=== PATIENT | male | born 1955 | race Caucasian/White ===

== ENCOUNTER 2016-06-29 16:42 | Emergency (ER) | payer MEDICARE | END 2016-06-29 19:45 | disposition home or self-care (01) | LOC: D.ER 16:42 | DX: G62.9 Polyneuropathy, unspecified (principal); E11.9 Type 2 diabetes mellitus without complications; I10 Essential (primary) hypertension ==

== ENCOUNTER 2016-10-17 11:24 | Emergency (ER) | payer MEDICARE | END 2016-10-17 12:06 | disposition home or self-care (01) | LOC: D.ER 11:24 | DX: M54.5 Low back pain (principal); E78.5 Hyperlipidemia, unspecified; E11.9 Type 2 diabetes mellitus without complications; I10 Essential (primary) hypertension ==

== ENCOUNTER 2016-10-20 13:13 | Emergency (ER) | payer MEDICARE | END 2016-10-20 19:24 | disposition home or self-care (01) | LOC: D.ER 13:13 | DX: M54.16 Radiculopathy, lumbar region (principal); I10 Essential (primary) hypertension; E11.9 Type 2 diabetes mellitus without complications ==

== ENCOUNTER → 2017-07-30 13:05 | Outpatient (CLI) | payer MEDICARE ==
[2017-07-30 14:08] LABS: ALBUMIN 3.7 g/dL (3.4-5.0); ANION GAP 15.2 mmol/L (8-16); BILIRUBIN - TOTAL 0.82 mg/dL (0.2-1.3); CALCIUM 9.4 mg/dL (8.5-10.1); CREATININE - SERUM 1.3 mg/dL (0.6-1.3); POTASSIUM - SERUM 4.2 mmol/L (3.5-5.1)
== END | disposition home or self-care (01) ==
LOC: D.LAB 07-10 08:15 → D.MRI 07-10 08:30 → D.LAB 13:05
PROVIDERS: Legal Medicine
DX: M51.35 Other intervertebral disc degeneration, thoracolumbar region (principal); M54.5 Low back pain; E11.9 Type 2 diabetes mellitus without complications; E78.2 Mixed hyperlipidemia; M77.40 Metatarsalgia, unspecified foot

== ENCOUNTER → 2018-01-06 08:19 | Outpatient (CLI) | payer MEDICARE ==
[~2018-01-06 08:19] MED LIST: ACCURETIC 20-251 TAB PO; CARDURA4 MG PO; CELEXA20 MG PO; CYMBALTA60 MG PO; DURAGESIC1 PATCH .2 TRANSDERM; FLOMAX0.4 MG PO; GLUCOPHAGE1000 MG PO; HYDROCODONE-APA1 TAB PO; METOPROLOL TART50 MG PO; MOBIC7.5 MG PO; NEURONTIN 400400 MG PO; PROSCAR5 MG PO; ZANAFLEX4 MG PO
[2018-02-04 10:55] VITALS: BMI 30.1
== END | disposition home or self-care (01) ==
LOC: D.MRI 08:19
DX: I67.1 Cerebral aneurysm, nonruptured (principal)

== ENCOUNTER 2018-01-19 05:14 | Day surgery (SDC) | payer MEDICARE ==
[~2018-01-19] VITALS: Ht 172.7 cm; Wt 85.3 kg
--- NOTE | ~2018-01-19 | OP ---
PATIENT NAME: FABRICIO MAO MEDICAL RECORD: [id number] :55 LOCATION:[facility] ADMISSION DATE: SURGEON: GAIL BOYLE MD DATE OF OPERATION: 01/19/2018 DATE OF SERVICE: 01/19/2018 PREOPERATIVE DIAGNOSES: Lumbar spinal stenosis and foraminal stenosis L3-L4, left. PROCEDURE: Lumbar laminotomy, medial facetectomy and foraminotomy L3-L4, left, with METRx retractor. SURGEON: Gail Boyle MD PRIMARY CARE DOCTOR: Dr. Martinez. DESCRIPTION AND TECHNIQUE: After induction of general endotracheal anesthesia, the patient was rolled prone on a Jamaal frame. Lumbar spine was prepped and draped in usual sterile fashion. Fluoroscopic x-ray and spinal needle localized the L3-L4 interspace on the left side. A stab incision was created with #11 blade and series of dilators were used to advance a METRx retractor to the L3-L4 interspace on the left. This was confirmed with fluoroscopic x-ray. A microscope and Midas Raudel drill were used to perform laminotomy, medial facetectomy and foraminotomy L3-L4 on the left. Hypertrophied ligamentum flavum was removed with Cloward rongeurs. Foraminotomy was carried out with Cloward rongeurs on the left around the pedicle and also the transiting L4 nerve root. Both nerves were decompressed well. The disc space was inspected and found to cause no significant nerve root compression. Therefore, there was no discectomy performed. The retractor was removed. The fascia was closed with 2-0 Vicryl suture. Subdermal layer was closed with 3-0 Vicryl suture. The skin was closed with ge. A sterile dressing was applied to the wound. The patient was awakened in good condition and taken to recovery. All counts were reported as correct. Estimated blood loss was minimal. TRANSINT:[id number] Voice Confirmation ID: [id number] DOCUMENT ID: [id number] GAIL BOYLE MD at 1841 CC: [id number] DICTATION DATE: 02/05/18 1021 COMMUNITY RELATIONS MANAGER: 02/05/18 1050 [facility] 01/19/18 [place] [address]
[~2018-01-19 05:14] MED LIST changes: -FLOMAX0.4 MG PO; -HYDROCODONE-APA1 TAB PO; -PROSCAR5 MG PO
[2018-01-19 05:35] LABS: HEMATOCRIT 33.5 % (42.0-54.0); HEMOGLOBIN 11.2 g/dL (13.5-17.5); MCH 28.4 pg (26.0-34.0); MCHC 33.4 g/dL (31.0-37.0); MCV 84.8 fL (80.0-100.0); MEAN PLATELET VOLUME 11.2 fL (7.4-10.4); RBC 3.95 10x6/uL (4.20-6.10); WBC 6.5 10x3/uL (4.8-10.8)
[2018-01-19 06:08] LABS: ANION GAP 12.7 mmol/L (8-16); CALCIUM 8.5 mg/dL (8.5-10.1); CARBON DIOXIDE 28.5 mmol/L (21.0-32.0); CREATININE - SERUM 1.6 mg/dL (0.6-1.3); POTASSIUM - SERUM 4.2 mmol/L (3.5-5.1)
[2018-01-19 06:27] VITALS: BP 124/82; Ht 172.7 cm; Wt 85.3 kg
[2018-01-19] MEDS ORDERED: HYDROCODONE-APA1 TAB PO (12:07)
== END 2018-01-19 12:23 | disposition home or self-care (01) ==
LOC: D.OPS 05:14
PROVIDERS: Anesthesiology
DX: M48.061 Spinal stenosis, lumbar region without neurogenic claudication (principal); Z01.812 Encounter for preprocedural laboratory examination

== ENCOUNTER 2018-02-03 16:41 | Inpatient (IN) | payer MEDICARE ==
[~2018-02-03] VITALS: Ht 172.7 cm; Wt 81.3 kg
--- NOTE | ~2018-02-03 | OP ---
PATIENT NAME: FABRICIO MAO MEDICAL RECORD: [id number] :55 LOCATION:D. D.2111 ADMISSION DATE:02/03/18 SURGEON: AJ RAMOS MD DATE OF OPERATION: 02/04/2018 SURGEON: Aj Ramso MD ANESTHESIA: MAC by Gordy Cruz CRNA DIAGNOSES: Urinary retention with renal failure due to obstructive BPH. PROCEDURE: Cystoscopy and insertion of a Colón catheter over a guidewire. FINDINGS: No urethral stricture. Obstructive BPH with a very large median lobe. Heavily trabeculated very large capacity bladder with over 1 liter of urine in it. BLOOD LOSS: None. CLINICAL HISTORY: This is a 63-year-old male, who about 2 weeks ago had a lumbar laminectomy. This relieved his back pain, but he found it very difficult to void. Apparently, he has been having difficulty voiding for some time and he has nocturia x5. He also has daytime urinary frequency. Eventually, he went to his physician complaining of abdominal pain as well as right flank pain. A CT scan shows a massively distended bladder with bilateral hydronephrosis. His blood work shows renal failure with a creatinine of 13.3 and BUN of 149. His sodium is somewhat low at 132 and his potassium is normal at 4.6. The nurses on the floor attempted to insert a Colón catheter, but they were unsuccessful. He comes now to have Colón catheter insertion through a scope. Because of his renal failure, I did not give him any antibiotics. DESCRIPTION OF PROCEDURE: The patient was given IV sedation. He was placed in the dorsal lithotomy position and prepped and draped. We then used a 21-Swedish cystoscope with 30-degree lens for visualization. He does not have any urethral strictures. The prostatic urethra was obstructed. The lateral lobes are not too bad, but he has a very tall median lobe. Going into the bladder, the bladder was massively distended. Single ureteral orifices are seen. I did not see any bladder tumors. We inserted a Sensor wire into the bladder. The scope was then removed, leaving the wire in place. A 16-Swedish circle tip Colón catheter was then inserted into the bladder. The balloon was inflated with 10 cc of sterile water. I am sure that there is at least a liter, if not more in the bladder. The patient will be returned back to the floor and he will be watched for development of postobstructive diuresis. TRANSINT:[id number] Voice Confirmation ID: [id number] DOCUMENT ID: [id number] AJ RAMOS MD at 0842 CC: [id number] DICTATION DATE: 02/04/18 1706 MIXING MACHINE ATTENDANT: 02/04/18 1751 ADM IN [id number] [place] [address]
[~2018-02-03 16:41] MED LIST changes: +HYDROCODONE-APA1 TAB PO
[2018-02-03 17:13] LABS: BASOPHILS 0.1 % (0-2); EOSINOPHILS 0.2 % (0-7); HEMATOCRIT 25.8 % (42.0-54.0); IMMATURE GRANULOCYTES 0.4 % (0-5); LYMPHOCYTES 7.4 % (15-50); MCH 27.8 pg (26.0-34.0); MCHC 34.9 g/dL (31.0-37.0); MCV 79.6 fL (80.0-100.0); MEAN PLATELET VOLUME 8.5 fL (7.4-10.4); NEUTROPHILS 82.9 % (40-80); PLATELET COUNT 171 10x3/uL (130-400); RBC 3.24 10x6/uL (4.20-6.10); RDW 13.8 % (11.5-14.5); WBC 13.8 10x3/uL (4.8-10.8)
[2018-02-03 18:11] LABS: ALBUMIN 2.6 g/dL (3.4-5.0); ANION GAP 25.2 mmol/L (8-16); BILIRUBIN - TOTAL 0.66 mg/dL (0.2-1.3); CALCIUM 8.4 mg/dL (8.5-10.1); CREATININE - SERUM 14.6 mg/dL (0.6-1.3); POTASSIUM - SERUM 5.2 mmol/L (3.5-5.1); PROTEIN - SERUM 6.9 g/dL (6.4-8.2)
[2018-02-03 19:26] LABS: APPEARANCE CLEAR (CLEAR); BILIRUBIN NEGATIVE (NEGATIVE); COLOR YELLOW (YELLOW); GLUCOSE NEGATIVE (NEGATIVE); KETONE NEGATIVE (NEGATIVE); NITRITE NEGATIVE (NEGATIVE); PROTEIN TRACE mg/dL (NEGATIVE); SPECIFIC GRAVITY 1.015 (1.005-1.020); UROBILINOGEN NORMAL (NORMAL)
[2018-02-03 22:49] VITALS: BP 167/86
[2018-02-04 01:02] VITALS: BP 145/68; BMI 30.1
[2018-02-04 04:00] VITALS: BP 154/80
[2018-02-04 06:47] LABS: BASOPHILS 0.1 % (0-2); EOSINOPHILS 0.3 % (0-7); HEMATOCRIT 26.5 % (42.0-54.0); HEMOGLOBIN 9.4 g/dL (13.5-17.5); IMMATURE GRANULOCYTES 0.5 % (0-5); LYMPHOCYTES 5.8 % (15-50); MCH 28.5 pg (26.0-34.0); MCHC 35.5 g/dL (31.0-37.0); MCV 80.3 fL (80.0-100.0); MEAN PLATELET VOLUME 9.2 fL (7.4-10.4); MONOCYTES 10.9 % (2-11); NEUTROPHILS 82.4 % (40-80); RDW 13.9 % (11.5-14.5); WBC 15.3 10x3/uL (4.8-10.8)
[2018-02-04 07:00] LABS: PLATELET COUNT 207 10x3/uL (130-400)
[2018-02-04 07:20] LABS: ALBUMIN 2.6 g/dL (3.4-5.0); ANION GAP 22.8 mmol/L (8-16); BILIRUBIN - TOTAL 0.56 mg/dL (0.2-1.3); CALCIUM 8.5 mg/dL (8.5-10.1); CARBON DIOXIDE 15.8 mmol/L (21.0-32.0); CREATININE - SERUM 13.3 mg/dL (0.6-1.3); MAGNESIUM - SERUM 1.3 mg/dL (1.8-2.4); PHOSPHOROUS 6.9 mg/dL (2.5-4.9); POTASSIUM - SERUM 4.6 mmol/L (3.5-5.1)
[2018-02-04 08:54] LABS: % SATURATION 18 % (15-55); IRON 36 ug/dl (35-150); TOTAL IRON BIND CAPACITY 194 ug/dl (260-445); UNSAT IRON BIND CAPACITY 158 ug/dl (150-375)
[2018-02-04 10:55] VITALS: Ht 172.7 cm; Wt 81.3 kg
[2018-02-04 12:30] VITALS: BP 137/86
[2018-02-04 21:38] VITALS: BP 136/76
[2018-02-05 06:16] LABS: BASOPHILS 0.2 % (0-2); EOSINOPHILS 1.6 % (0-7); HEMATOCRIT 23.9 % (42.0-54.0); HEMOGLOBIN 8.4 g/dL (13.5-17.5); IMMATURE GRANULOCYTES 0.6 % (0-5); LYMPHOCYTES 14.1 % (15-50); MCH 27.8 pg (26.0-34.0); MCHC 35.1 g/dL (31.0-37.0); MCV 79.1 fL (80.0-100.0); MEAN PLATELET VOLUME 9.1 fL (7.4-10.4); MONOCYTES 5.5 % (2-11); PLATELET COUNT 175 10x3/uL (130-400); RBC 3.02 10x6/uL (4.20-6.10); RDW 13.8 % (11.5-14.5); WBC 11.5 10x3/uL (4.8-10.8)
[2018-02-05 06:28] VITALS: BP 122/74
[2018-02-05 06:50] LABS: ALBUMIN 2.4 g/dL (3.4-5.0); BILIRUBIN - TOTAL 0.54 mg/dL (0.2-1.3); CALCIUM 8.5 mg/dL (8.5-10.1); PROTEIN - SERUM 6.5 g/dL (6.4-8.2)
[2018-02-05 06:51] LABS: CARBON DIOXIDE 21.7 mmol/L (21.0-32.0); POTASSIUM - SERUM 3.7 mmol/L (3.5-5.1)
[2018-02-05 08:31] VITALS: BP 147/86
[2018-02-05 09:21] LABS: FOLATE (FOLIC ACID) - SERUM 5.5 ng/mL (>3.0)
[2018-02-05 12:43] LABS: APPEARANCE TURBID (CLEAR); COLOR PINK (YELLOW)
[2018-02-05 12:44] LABS: BILIRUBIN NEGATIVE (NEGATIVE); GLUCOSE 1000 mg/dL (NEGATIVE); KETONE NEGATIVE (NEGATIVE); NITRITE NEGATIVE (NEGATIVE); PROTEIN 2+ mg/dL (NEGATIVE); SPECIFIC GRAVITY 1.015 (1.005-1.020); UROBILINOGEN NORMAL (NORMAL); WHITE CELLS - URINE 0-5 /hpf (0-5)
[2018-02-05 12:45] LABS: EPITHELIAL CELLS OCC /hpf (0-5); MUCUS <1+ /lpf (NONE SEEN); RED CELLS - URINE >50 /hpf (0-5)
[2018-02-05 12:46] LABS: AMORPHOUS SEDIMENT <1+ /lpf (NONE SEEN)
[2018-02-05 14:12] VITALS: BP 108/68
[2018-02-05 16:20] VITALS: BP 102/59
[2018-02-05 21:10] VITALS: BP 116/66
[2018-02-06 01:02] VITALS: BP 124/70
[2018-02-06 05:26] LABS: BASOPHILS 0.5 % (0-2); EOSINOPHILS 6.1 % (0-7); HEMATOCRIT 23.1 % (42.0-54.0); IMMATURE GRANULOCYTES 0.9 % (0-5); LYMPHOCYTES 19.8 % (15-50); MCH 28.3 pg (26.0-34.0); MCHC 34.6 g/dL (31.0-37.0); MCV 81.6 fL (80.0-100.0); MEAN PLATELET VOLUME 9.5 fL (7.4-10.4); NEUTROPHILS 60.7 % (40-80); PLATELET COUNT 186 10x3/uL (130-400); RBC 2.83 10x6/uL (4.20-6.10); RDW 14.1 % (11.5-14.5); WBC 7.5 10x3/uL (4.8-10.8)
[2018-02-06 05:47] LABS: ALBUMIN 2.1 g/dL (3.4-5.0); ALKALINE PHOSPHATASE 50 U/L (46-116); ALT (SGPT) 13 U/L (10-68); BILIRUBIN - TOTAL 0.39 mg/dL (0.2-1.3); CARBON DIOXIDE 24.8 mmol/L (21.0-32.0); CHLORIDE - SERUM 110 mmol/L (98-107); GLUCOSE 115 mg/dL (74-106); POTASSIUM - SERUM 3.7 mmol/L (3.5-5.1); PROTEIN - SERUM 5.9 g/dL (6.4-8.2); SODIUM 142 mmol/L (136-145)
[2018-02-06 05:50] LABS: CALC OSMOLALITY 284 mosm/kg (275-300); CREATININE - SERUM 0.8 mg/dL (0.6-1.3); UREA NITROGEN 16 mg/dL (7-18); eGFR NON AFRICAN AMERICAN > 90 mL/min (90-120)
[2018-02-06 05:51] VITALS: BP 116/54
[2018-02-06 08:30] VITALS: BP 128/76
[2018-02-06 12:58] VITALS: BP 94/64
[2018-02-06] MEDS ORDERED: FLOMAX0.4 MG PO (17:54)
[2018-02-06] MEDS ORDERED: PROSCAR5 MG PO (17:54)
== END 2018-02-06 18:37 | disposition home or self-care (01) | DRG 683 ==
LOC: D.ER 16:41 → D.M2 22:50
PROVIDERS: Emergency Medicine; Family Medicine; Legal Medicine; Student in an Organized Health Care Education/Training Program; Urology
PROC: 0T9B80Z Drainage of Bladder with Drainage Device, Via Natural or Artificial Opening Endoscopic (ICD-10-PCS; principal; 2018-02-04 14:00)
DX: N17.9 Acute kidney failure, unspecified (principal); N13.8 Other obstructive and reflux uropathy; N13.1 Hydronephrosis with ureteral stricture, not elsewhere classified; N40.1 Benign prostatic hyperplasia with lower urinary tract symptoms; R33.8 Other retention of urine; E11.9 Type 2 diabetes mellitus without complications; I10 Essential (primary) hypertension; K21.9 Gastro-esophageal reflux disease without esophagitis; F32.9 Major depressive disorder, single episode, unspecified; F41.9 Anxiety disorder, unspecified

== ENCOUNTER → 2018-03-16 09:38 | Outpatient (CLI) | payer MEDICARE ==
[2018-02-04 10:55] VITALS: BMI 30.1
[~2018-03-16 09:38] MED LIST changes: +FLOMAX0.4 MG PO; +PROSCAR5 MG PO
== END | disposition home or self-care (01) ==
LOC: D.MRI 09:38
DX: M54.16 Radiculopathy, lumbar region (principal)

== ENCOUNTER 2018-03-30 08:20 | Day surgery (SDC) | payer MEDICARE, MEDICAID ==
[2018-03-29 09:32] LABS: HEMATOCRIT 31.1 % (42.0-54.0); HEMOGLOBIN 9.8 g/dL (13.5-17.5); MCH 27.5 pg (26.0-34.0); MCHC 31.5 g/dL (31.0-37.0); MCV 87.4 fL (80.0-100.0); MEAN PLATELET VOLUME 10.4 fL (7.4-10.4); RBC 3.56 10x6/uL (4.20-6.10); RDW 13.4 % (11.5-14.5); WBC 6.1 10x3/uL (4.8-10.8)
[~2018-03-30] VITALS: Ht 172.7 cm; Wt 79.5 kg
[2018-03-30] VITALS (10 sets, daily range): BP systolic 114–163; BP diastolic 60–923; Ht 172.7 cm; Wt 79.5 kg
--- NOTE | ~2018-03-30 | OP ---
PATIENT NAME: FABRICIO MAO MEDICAL RECORD: [id number] :55 LOCATION:[facility] ADMISSION DATE: SURGEON: MARK RAMOS MD DATE OF OPERATION: 03/30/2018 SURGEON: Mark Ramos MD ANESTHESIA: General anesthesia by Alexa Vila CRNA. DIAGNOSIS: Urinary retention due to obstructive BPH. PROCEDURE: Cystoscopy, transurethral resection of the prostate using a button electrode and bipolar resection loop. FINDINGS: Trilobar hyperplasia of the prostate. Very vascular prostate. Single ureteral orifices bilaterally. Trabeculated bladder without any tumors. BLOOD LOSS: Difficult to estimate. He has a large number of arterial bleeders. CBC drawn intraoperatively. CLINICAL HISTORY: This is a 63-year-old male, who went into urinary retention after he had some back surgery. He has been on doxazosin for many years to treat his BPH. A Colón catheter was placed as he had developed renal failure from the urinary retention. His renal failure resolved after placement of the Colón catheter. He was also started on tamsulosin and finasteride. He had a voiding trial in the office and he was unable to void. He does not wish to continue waiting for the finasteride to take effect and he wishes to proceed with a TURP. He is not allergic to any medications. He was given Ancef IV secretary board of commissioners to the OR. DESCRIPTION OF PROCEDURE: The patient was given induction of general anesthesia. He was placed in dorsal lithotomy position and prepped and draped. The resectoscope was inserted using an obturator. We then placed the lens for cystoscopy. He has moderate sized median lobe, but very large lateral lobes, which are obstructive. The verumontanum was seen clearly. Going in the bladder, no bladder tumors were seen. There are single ureteral orifices on each side. The button electrode was used and an initial resection started from the bladder neck to the area just proximal to the verumontanum. The prostate looks extremely vascular and even with the plasma vaporization from the button electrode, he continued to have quite significant bleeding. This was especially prevalent at the bladder neck. At any time we saw arterial bleeding, it was coagulated. After a while, we had resected much of the prostate with the button electrode. However, there was still large masses of the lateral lobes present. We therefore switched over to the bipolar resection loop. We then removed quite significantly greater quantities of tissue. However, we encountered equally significant arterial bleeding points. These were coagulated where I could see them. Bleeding was also evident in the anterior fibromuscular region and this also had to be resected. On the lateral lobes, I entered into the venous sinuses on both sides. In order to get at bleeding tissue, I had to resect away the verumontanum. This allowed me to see the arterial bleeding source on the posterior floor of the prostate. At the end of the procedure, the patient had well resected prostatic urethra. There was still quite a significant amount of venous bleeding. I switched back to the button electrode and coagulated the entire surface of the prostate. We elliked out the prostatic resection chips. We looked further and saw no further prostatic resection chips in the bladder. OPERATIVE REPORT [id number] FABRICIO MAO The scope was removed and a 24-Estonian 3-way Colón catheter was inserted into the bladder. The balloon was inflated with 30 cc of saline. We then started continuous bladder irrigation with normal saline. Intraoperatively, his blood pressure did drop to 170 systolic. We obtained a CBC level. His preoperative hemoglobin was 9.8 and the intraoperative hemoglobin was 9.9. However, I think he is hypovolemic regardless. We proceeded to transfuse him with 2 units of packed red blood cells. At the end of procedure, he has continuous bladder irrigation going. This is fairly clear and drainage. I will keep him in hospital for continuous bladder irrigation. He will probably have to go home with a Colón catheter until the venous sinuses have sealed off. TRANSINT:[id number] Voice Confirmation ID: [id number] DOCUMENT ID: [id number] MARK RAMOS MD at 1500 CC: [id number] DICTATION DATE: 03/30/18 1400 WARDROBE MISTRESS: 03/30/18 1452 [facility] [address] [id number]
[~2018-03-30 08:20] MED LIST changes: +LIPITOR40 MG PO; +NORVASC5 MG PO; +OXYCONTIN15 MG; +PEPCID AC20 MG PO; +PROSCAR5 MG
[2018-03-30 12:53] LABS: BASOPHILS 0.5 % (0-2); EOSINOPHILS 2.8 % (0-7); HEMATOCRIT 30.1 % (42.0-54.0); HEMOGLOBIN 9.9 g/dL (13.5-17.5); IMMATURE GRANULOCYTES 0.2 % (0-5); MCHC 32.9 g/dL (31.0-37.0); MEAN PLATELET VOLUME 10.8 fL (7.4-10.4); MONOCYTES 6.8 % (2-11); NEUTROPHILS 67.7 % (40-80); PLATELET COUNT 154 10x3/uL (130-400); RBC 3.53 10x6/uL (4.20-6.10); RDW 13.3 % (11.5-14.5); WBC 6.1 10x3/uL (4.8-10.8)
[2018-03-30 13:02] LABS: MCV 85.3 fL (80.0-100.0)
[2018-03-30 18:13] LABS: CALC OSMOLALITY 286 mosm/kg (275-300); CALCIUM 7.4 mg/dL (8.5-10.1); CARBON DIOXIDE 22.7 mmol/L (21.0-32.0); CHLORIDE - SERUM 110 mmol/L (98-107); CREATININE - SERUM 0.9 mg/dL (0.6-1.3); GLUCOSE 126 mg/dL (74-106); POTASSIUM - SERUM 4.8 mmol/L (3.5-5.1); SODIUM 142 mmol/L (136-145); UREA NITROGEN 18 mg/dL (7-18); eGFR NON AFRICAN AMERICAN > 90 mL/min (90-120)
[2018-03-31 03:39] VITALS: BP 105/46
[2018-03-31 08:51] VITALS: BP 143/66
[2018-03-31 09:50] LABS: BASOPHILS 0.2 % (0-2); EOSINOPHILS 3.6 % (0-7); HEMATOCRIT 31.6 % (42.0-54.0); HEMOGLOBIN 10.4 g/dL (13.5-17.5); IMMATURE GRANULOCYTES 0.1 % (0-5); LYMPHOCYTES 13.8 % (15-50); MCH 28.6 pg (26.0-34.0); MCHC 32.9 g/dL (31.0-37.0); MCV 86.8 fL (80.0-100.0); MEAN PLATELET VOLUME 10.4 fL (7.4-10.4); NEUTROPHILS 76.3 % (40-80); PLATELET COUNT 132 10x3/uL (130-400); RBC 3.64 10x6/uL (4.20-6.10)
[2018-03-31 09:53] LABS: WBC 8.1 10x3/uL (4.8-10.8)
[2018-03-31] MEDS ORDERED: NORCO 7.5/325 T1 TA1 PO (11:15)
[2018-03-31] MEDS ORDERED: OXYBUTYNIN CHLOR5 MG PO (11:16)
[2018-03-31 12:36] VITALS: BP 128/66
== END 2018-03-31 16:30 | disposition home or self-care (01) ==
LOC: D.OPS 08:20 → D.MS 16:05 → D.OPS 16:06 → D.MS 16:07 → D.OPS 03-31 16:30 → D.MS 03-31 16:30
PROVIDERS: Anesthesiology; Urology
DX: N40.1 Benign prostatic hyperplasia with lower urinary tract symptoms (principal); N13.8 Other obstructive and reflux uropathy; I10 Essential (primary) hypertension; E11.9 Type 2 diabetes mellitus without complications

== ENCOUNTER 2018-07-07 14:14 | Emergency (ER) | payer MEDICARE, MEDICAID ==
[~2018-07-07] VITALS: Ht 172.7 cm; Wt 88.6 kg
[~2018-07-07 14:14] MED LIST changes: +NORCO 7.5/325 T1 TA1 PO; +OXYBUTYNIN CHLOR5 MG PO
[2018-07-07 14:17] VITALS: BP 131/85; Ht 172.7 cm; Wt 88.6 kg
[2018-07-07] MEDS ORDERED: OXYCODONE HCL E20 MG PO (14:21)
[2018-07-07] MEDS ORDERED: VOLTAREN75 MG PO (15:48)
[2018-07-07] MEDS ORDERED: BACLOFEN20 M1 PO (15:48)
[2018-07-07] MEDS ORDERED: TALWIN NX1 TAB PO (15:48)
== END 2018-07-07 16:33 | disposition home or self-care (01) ==
LOC: D.ER 14:14
DX: M54.5 Low back pain (principal); E11.9 Type 2 diabetes mellitus without complications; I10 Essential (primary) hypertension

== ENCOUNTER → 2018-07-09 21:03 | Outpatient (CLI) | payer MEDICARE, MEDICAID ==
[2018-07-07 14:17] VITALS: BMI 29.7
[~2018-07-09 21:03] MED LIST changes: +BACLOFEN20 M1 PO; +OXYCODONE HCL E20 MG PO; +TALWIN NX1 TAB PO; +VOLTAREN75 MG PO
[2018-07-09 21:21] LABS: BASOPHILS 0.3 % (0-2); EOSINOPHILS 0.2 % (0-7); HEMOGLOBIN 13.6 g/dL (13.5-17.5); IMMATURE GRANULOCYTES 0.1 % (0-5); LYMPHOCYTES 14.6 % (15-50); MCH 27.7 pg (26.0-34.0); MCV 81.5 fL (80.0-100.0); MEAN PLATELET VOLUME 12.2 fL (7.4-10.4); MONOCYTES 8.2 % (2-11); NEUTROPHILS 76.6 % (40-80); RBC 4.91 10x6/uL (4.20-6.10); RDW 13.9 % (11.5-14.5); WBC 11.3 10x3/uL (4.8-10.8)
[2018-07-09 21:38] LABS: ALBUMIN 3.7 g/dL (3.4-5.0); BILIRUBIN - TOTAL 1.02 mg/dL (0.2-1.3); CALCIUM 10.1 mg/dL (8.5-10.1); CARBON DIOXIDE 22.2 mmol/L (21.0-32.0); CREATININE - SERUM 1.5 mg/dL (0.6-1.3); POTASSIUM - SERUM 4.2 mmol/L (3.5-5.1)
[2018-07-09 21:39] LABS: PLATELET COUNT 280 10x3/uL (130-400)
[2018-07-09 21:51] LABS: HELICOBACTER PYLORI IGG NEGATIVE (NEGATIVE)
== END | disposition home or self-care (01) ==
LOC: D.LABREF 21:03
PROVIDERS: Legal Medicine
DX: R10.9 Unspecified abdominal pain (principal)

== ENCOUNTER 2018-09-25 18:35 | Emergency (ER) | payer MEDICARE, MEDICAID ==
[2018-09-25 18:39] VITALS: BMI 26.6
[2018-09-25 19:37] LABS: BASOPHILS 0.3 % (0-2); EOSINOPHILS 1.2 % (0-7); HEMATOCRIT 37.5 % (42.0-54.0); HEMOGLOBIN 12.7 g/dL (13.5-17.5); IMMATURE GRANULOCYTES 0.3 % (0-5); LYMPHOCYTES 11.8 % (15-50); MCH 27.5 pg (26.0-34.0); MCHC 33.9 g/dL (31.0-37.0); MCV 81.3 fL (80.0-100.0); MEAN PLATELET VOLUME 10.3 fL (7.4-10.4); MONOCYTES 7.9 % (2-11); NEUTROPHILS 78.5 % (40-80); PLATELET COUNT 242 10x3/uL (130-400); RBC 4.61 10x6/uL (4.20-6.10); RDW 13.1 % (11.5-14.5); WBC 15.1 10x3/uL (4.8-10.8)
[2018-09-25 19:54] LABS: APPEARANCE CLEAR (CLEAR); BILIRUBIN NEGATIVE (NEGATIVE); COLOR YELLOW (YELLOW); GLUCOSE NEGATIVE (NEGATIVE); KETONE NEGATIVE (NEGATIVE); NITRITE NEGATIVE (NEGATIVE); PROTEIN NEGATIVE (NEGATIVE); SPECIFIC GRAVITY 1.005 (1.005-1.020); UROBILINOGEN NORMAL (NORMAL)
[2018-09-25 19:59] LABS: ALBUMIN 4.3 g/dL (3.4-5.0); ALKALINE PHOSPHATASE 90 U/L (46-116); ALT (SGPT) 17 U/L (10-68); BILIRUBIN - TOTAL 0.75 mg/dL (0.2-1.3); CALC OSMOLALITY 274 mosm/kg (275-300); CALCIUM 9.6 mg/dL (8.5-10.1); CARBON DIOXIDE 22.8 mmol/L (21.0-32.0); CHLORIDE - SERUM 96 mmol/L (98-107); CREATININE - SERUM 1.5 mg/dL (0.6-1.3); GLUCOSE 157 mg/dL (74-106); POTASSIUM - SERUM 4.9 mmol/L (3.5-5.1); PROTEIN - SERUM 8.5 g/dL (6.4-8.2); SODIUM 134 mmol/L (136-145); UREA NITROGEN 25 mg/dL (7-18); eGFR NON AFRICAN AMERICAN 50 mL/min (90-120)
[2018-09-25] MEDS ORDERED: FLOMAX0.4 MG PO (20:06)
[2018-09-25] MEDS ORDERED: CIPRO500 MG PO (20:06)
[2018-09-25 20:10] LABS: LIPASE 151 U/L (73-393); PRO BNP 120 pg/mL (0-125)
[2018-09-25 20:11] LABS: TROPONIN-I < 0.017 ng/mL (0.000-0.060)
[2018-09-25 22:17] VITALS: BP 158/84
== END 2018-09-25 22:17 | disposition home or self-care (01) ==
LOC: D.ER 18:35
PROVIDERS: Family Medicine
DX: R33.9 Retention of urine, unspecified (principal); N41.9 Inflammatory disease of prostate, unspecified

== ENCOUNTER → 2018-10-04 22:15 | Outpatient (CLI) | payer MEDICARE, MEDICAID ==
[2018-09-25 18:39] VITALS: BMI 26.6
[~2018-10-04 22:15] MED LIST changes: +CIPRO500 MG PO
== END | disposition home or self-care (01) ==
LOC: D.LABREF 22:15
PROVIDERS: ATTEND Urology
DX: R31.9 Hematuria, unspecified (principal)

== ENCOUNTER 2018-11-15 13:04 | Inpatient (IN) | payer MEDICARE, MEDICAID ==
[~2018-11-15] VITALS: Ht 172.7 cm; Wt 78.2 kg
[2018-11-15 13:54] LABS: BASOPHILS 0.2 % (0-2); EOSINOPHILS 0 % (0-7); HEMATOCRIT 40.3 % (42.0-54.0); HEMOGLOBIN 14.3 g/dL (13.5-17.5); IMMATURE GRANULOCYTES 0.3 % (0-5); LYMPHOCYTES 6.2 % (15-50); MCHC 35.5 g/dL (31.0-37.0); MCV 78.9 fL (80.0-100.0); MEAN PLATELET VOLUME 10.8 fL (7.4-10.4); MONOCYTES 7.7 % (2-11); NEUTROPHILS 85.6 % (40-80); PLATELET COUNT 250 10x3/uL (130-400); RBC 5.11 10x6/uL (4.20-6.10); RDW 14.1 % (11.5-14.5); WBC 19.7 10x3/uL (4.8-10.8)
[2018-11-15 14:02] LABS: ALBUMIN 3.9 g/dL (3.4-5.0); ANION GAP 19.8 mmol/L (8-16); BILIRUBIN - TOTAL 1.33 mg/dL (0.2-1.3); CALCIUM 10.1 mg/dL (8.5-10.1); CARBON DIOXIDE 21.3 mmol/L (21.0-32.0); CREATININE - SERUM 1.6 mg/dL (0.6-1.3); POTASSIUM - SERUM 3.1 mmol/L (3.5-5.1)
[2018-11-15 14:05] LABS: TROPONIN-I 0.024 ng/mL (0.000-0.060)
--- NOTE | 2018-11-15 15:09 | NUR ---
PT SITTTING IN HIGH MARTINS'S, RESPIRATIONS EVEN AND UNLABORED. IV INFUSING ORDERED WITHOUT SIGNS OF INFILTRATION. PT AWARE THAT URINE SAMPLE IS NEEDED BALJIT FOR ORDERED LABS. CALL LIGHT IN REACH. LIGHTS DIMMED FOR COMFORT.
[2018-11-15 16:32] LABS: APPEARANCE CLEAR (CLEAR); BILIRUBIN NEGATIVE (NEGATIVE); COLOR YELLOW (YELLOW); GLUCOSE NEGATIVE (NEGATIVE); KETONE MODERATE mg/dL (NEGATIVE); NITRITE NEGATIVE (NEGATIVE); PROTEIN TRACE mg/dL (NEGATIVE); SPECIFIC GRAVITY 1.025 (1.005-1.020); UROBILINOGEN NORMAL (NORMAL)
--- NOTE | 2018-11-15 16:40 | NUR ---
PT OBSERVED SITTING IN FOWLERS POSITION, BREATHING EVEN AND UNLABORED SP02 96% PT DENIES FURTHER NEEDS AT THIS TIME. WILL CONTINUE TO MONITOR.
[2018-11-15 16:42] VITALS: BP 190/96
[2018-11-15 17:45] VITALS: BP 174/99
--- NOTE | 2018-11-15 17:51 | NUR ---
WILL ADMINISTER ORDERED ABT ONCE ORDERED BLOOD CULTURE X2 OBTAINED.
--- NOTE | 2018-11-15 18:24 | NUR ---
THIS NURSE ATTEMPTED TO CALL REPORT FOR PT'S ASSIGNED ROOM. JESSICA IN ICU STATED ROOM IS DIRTY AND THEY WILL CALL BACK.
--- NOTE | 2018-11-15 18:32 | NUR ---
THIS NURSE GAVE REPORT TO REMEDIOS MCCORMACK IN ICU FOR THIS PT. REMEDIOS MCCORMACK STATED THAT SHE COULD TAKE REPORT AND CALL ME WHEN THE NEW ROOM IS CLEAN.
[2018-11-15 19:00] LABS: HELICOBACTER PYLORI IGG NEGATIVE (NEGATIVE)
--- NOTE | 2018-11-15 19:02 | NUR ---
ORDERED ZOSYN INITIATED AT 1832 COMPLETE AT 1902. WILL ADMINISTER NEXT ORDERED ABT.
--- NOTE | 2018-11-15 19:21 | NUR ---
FIRST OF FOUR ORDERED POTASSIUM RIDERS, 1OMEQ EACH, COMPLETE AT 1858, FIRST INITIATED AT 1758. ORDER NOW FLO'Coretta.
[2018-11-15 19:37] LABS: APTT 22.8 SECONDS (22.8-39.4); INR 1.22 (0.85-1.17); PROTIME 14.8 SECONDS (11.6-15.0)
--- NOTE | 2018-11-15 19:40 | NUR ---
RECEIVED PATIENT TO ROOM 2303 VIA ED BED ACCOMPANIED BY ED STAFF. TRANSFERRED ICU BED. ORIENTED TO ROOM. CONNECTED TO MONITORS WITH ALARMS SET. CALL LIGHT IN REACH AND ABLE TO UTILIZE TO MAKE NEEDS KNOWN
[2018-11-15 20:00] VITALS: BP 173/107
[2018-11-15] MEDS ORDERED: KLONOPIN0.5 MG PO (20:22)
[2018-11-15] MEDS ORDERED: ZANAFLEX4 MG PO (20:25)
[2018-11-15 21:00] VITALS: BP 143/94
[2018-11-15 22:00] VITALS: BP 110/80
[2018-11-15 23:00] VITALS: BP 116/83
[2018-11-16] VITALS (12 sets, daily range): BP systolic 90–186; BP diastolic 62–103; BMI 26.2
[2018-11-16 04:37] LABS: BASOPHILS 0.1 % (0-2); EOSINOPHILS 0.1 % (0-7); HEMATOCRIT 35.1 % (42.0-54.0); HEMOGLOBIN 12.1 g/dL (13.5-17.5); IMMATURE GRANULOCYTES 0.2 % (0-5); MCH 27.4 pg (26.0-34.0); MCHC 34.5 g/dL (31.0-37.0); MCV 79.4 fL (80.0-100.0); MEAN PLATELET VOLUME 11.3 fL (7.4-10.4); MONOCYTES 3.7 % (2-11); NEUTROPHILS 88.9 % (40-80); RBC 4.42 10x6/uL (4.20-6.10); RDW 14.4 % (11.5-14.5); WBC 17.6 10x3/uL (4.8-10.8)
[2018-11-16 04:44] LABS: PLATELET COUNT 167 10x3/uL (130-400)
[2018-11-16 04:58] LABS: BILIRUBIN - TOTAL 1.62 mg/dL (0.2-1.3); CALCIUM 9.1 mg/dL (8.5-10.1); CREATININE - SERUM 1.7 mg/dL (0.6-1.3); PHOSPHOROUS 4.2 mg/dL (2.5-4.9); PROTEIN - SERUM 6.1 g/dL (6.4-8.2)
[2018-11-16 05:09] LABS: ALBUMIN 2.7 g/dL (3.4-5.0); ANION GAP 10.5 mmol/L (8-16); CARBON DIOXIDE 27.3 mmol/L (21.0-32.0); POTASSIUM - SERUM 3.8 mmol/L (3.5-5.1)
--- NOTE | 2018-11-16 07:15 | NUR ---
REPORT RECIEVED, SHIFT ASSESSMENT COMPLETE, PT IS ALERT AND ORIENTED, NGT TO LIWS, ON RA WITH 97% O2 SAT, ALL PPP, VSS, CALL LIGHT IN REACH
--- NOTE | 2018-11-16 08:20 | NUR ---
DR. MCDANIEL AT BEDSIDE, NEW ORDERS RECIEVED, OK TO TRANSFER PT TO MED SURG
[2018-11-16 08:29] LABS: AMYLASE - SERUM 88 U/L (25-115); LIPASE 649 U/L (73-393)
--- NOTE | 2018-11-16 09:00 | NUR ---
DR. RAMOS AT BEDSIDE, BLADDER SCANNED, PT HAD 300 UOP, NO INDICATION FOR GALINDO PLACEMENT PER DR. RAMOS
--- NOTE | 2018-11-16 10:58 | NUR ---
REPORT CALLED TO MED SURG AT THIS TIME,
--- NOTE | 2018-11-16 20:00 | NUR ---
ASSESSMENT PER FLOWSHEET. IV PATENT LEFT LOWER ARM OF NS AT KVO WITH TITLE CAMERA OPERATOR OF DILAUDID IN USE WITH SETTINGS AT 0.2MG R17NFES W/4MG Q4HR L/O LEFT UPPER ARM WITH D5LR W/40MEQ KCL INFUSING AT 125CC'S/HR. PROTONIX GTT AT 10CC'S/HR. NGT TO RT NARE AT LIWS. BLOODY DRAINAGE NOTED. VERY SMALL AMOUNT.
--- NOTE | 2018-11-16 22:00 | NUR ---
MEDS GIVEN PER MAR.
[2018-11-17] VITALS (7 sets, daily range): BP systolic 95–125; BP diastolic 52–72; Ht 172.7 cm; Wt 78.2 kg
--- NOTE | 2018-11-17 00:40 | NUR ---
PAC STTING OF DILAUDID IS 0.4MG Q10MIN W/8MG Q4H L/O. ORDERED PER DR. MCDANIEL.
--- NOTE | 2018-11-17 03:43 | NUR ---
LEFT UPPER ARM IV LEAKING AND REMOVED CONNECTED IV FLUIDS TO A 3-WAY ADAPTOR. RESUMED IV FLUIDS.
--- NOTE | 2018-11-17 07:45 | NUR ---
IV TENDER AND LEAKING OF FLUID NOTED.
[2018-11-17 07:52] LABS: BASOPHILS 0.2 % (0-2); EOSINOPHILS 2.8 % (0-7); HEMATOCRIT 28.1 % (42.0-54.0); IMMATURE GRANULOCYTES 0.3 % (0-5); LYMPHOCYTES 7.5 % (15-50); MCH 27.5 pg (26.0-34.0); MCHC 33.5 g/dL (31.0-37.0); MONOCYTES 5.1 % (2-11); NEUTROPHILS 84.1 % (40-80); RDW 15.3 % (11.5-14.5)
[2018-11-17 07:54] LABS: HEMOGLOBIN 9.4 g/dL (13.5-17.5); MCV 82.2 fL (80.0-100.0); PLATELET COUNT 116 10x3/uL (130-400); RBC 3.42 10x6/uL (4.20-6.10); WBC 11.8 10x3/uL (4.8-10.8)
[2018-11-17 07:56] LABS: ANION GAP 9.5 mmol/L (8-16); CALCIUM 9.3 mg/dL (8.5-10.1); CARBON DIOXIDE 25.6 mmol/L (21.0-32.0); CREATININE - SERUM 1.9 mg/dL (0.6-1.3); MAGNESIUM - SERUM 1.8 mg/dL (1.8-2.4); POTASSIUM - SERUM 4.1 mmol/L (3.5-5.1)
--- NOTE | 2018-11-17 09:00 | NUR ---
ASSESSMENT PER FLOW SHEET. PT IS WITHOUT DISTRESS.MONITOR FOR NEEDS.CALL LIGHT IN REACH
--- NOTE | 2018-11-17 18:48 | NUR ---
REMAINS WITHOUT NEEDS.CONT PLAN OF CARE
--- NOTE | 2018-11-17 20:00 | NUR ---
ASSESSMENT PER FLOWSHEET. IV PATENT LEFT UPPER ARM MIDLINE WITH D5LR W/40MEQ KCL INFUSING AT 125CC'S/HR NS AT KVO BRIM CUTTER OF DILAUDID IN USE WITH SETTINGS AT 0.4 Q10MIN W/8MG Q4HR L/O. PROTONIX GTT AT 10CC'S/HR.SR UP X2 CALL LIGHT WITHIN REACH.
--- NOTE | 2018-11-17 22:00 | NUR ---
MEDS GIVEN PER JUL. VOIDS WELL IN URINAL.
[2018-11-18 00:46] VITALS: BP 123/63
--- NOTE | 2018-11-18 01:58 | NUR ---
AWAKE WATCHING VIDEOS ON PHONE.SR UP X2 CALL LIGHT WITHIN REACH DENIES NEEDS.
[2018-11-18 05:06] VITALS: BP 149/72
--- NOTE | 2018-11-18 06:36 | NUR ---
MEDS GIVEN PER MAR.
[2018-11-18 06:46] LABS: ANION GAP 9.4 mmol/L (8-16); CALCIUM 9.4 mg/dL (8.5-10.1); CARBON DIOXIDE 26.2 mmol/L (21.0-32.0); CREATININE - SERUM 1.5 mg/dL (0.6-1.3); POTASSIUM - SERUM 4.6 mmol/L (3.5-5.1)
[2018-11-18 06:49] LABS: BASOPHILS 0.3 % (0-2); HEMATOCRIT 27.6 % (42.0-54.0); HEMOGLOBIN 9.1 g/dL (13.5-17.5); IMMATURE GRANULOCYTES 0.3 % (0-5); LYMPHOCYTES 9.7 % (15-50); MCH 27.2 pg (26.0-34.0); MCV 82.6 fL (80.0-100.0); MEAN PLATELET VOLUME 12.2 fL (7.4-10.4); MONOCYTES 6.5 % (2-11); NEUTROPHILS 78.2 % (40-80); PLATELET COUNT 137 10x3/uL (130-400); RBC 3.34 10x6/uL (4.20-6.10); RDW 15.2 % (11.5-14.5); WBC 10.3 10x3/uL (4.8-10.8)
[2018-11-18 08:30] VITALS: BP 135/82
[2018-11-18 12:55] VITALS: BP 147/85
--- NOTE | 2018-11-18 16:25 | NUR ---
I have reviewed this patient and I concur with the Shift Assessment completed by the Licensed Practical Nurse today this shift.
[2018-11-18 16:38] VITALS: BP 127/89
--- NOTE | 2018-11-18 19:00 | NUR ---
REPORT RECEIVED AND CARE OF PT ASSUMED. PT SITTING UP ON SIDE OF BED WATCHING TV. LEFT MIDLINE PATENT WITH D5LR W/ 40 KCL INFUSING AT 125 ML / HR; PROTONIX INFUSING AT 10; AND SUPERVISOR BROADLOOM W/ DILAUDID IN USE FOR PAIN CONTROL WITH SETTINGS: 0.4/02/22 . PT NPO WITH ICE CHIPS ONLY. WILL MONITOR FOR NEEDS.
[2018-11-18 20:00] VITALS: BP 132/84
--- NOTE | 2018-11-18 21:34 | NUR ---
HS MEDICATIONS GIVEN. WILL CONTINUE TO MONITOR FOR NEEDS.
--- NOTE | 2018-11-18 22:00 | NUR ---
CHANGED OUT ALL IV TUBING PER PROTOCOL.
[2018-11-19] VITALS: BP 108/77
[2018-11-19 04:00] VITALS: BP 145/61
[2018-11-19 05:03] LABS: BASOPHILS 0.3 % (0-2); EOSINOPHILS 7.1 % (0-7); HEMATOCRIT 25.7 % (42.0-54.0); HEMOGLOBIN 8.6 g/dL (13.5-17.5); IMMATURE GRANULOCYTES 0.1 % (0-5); LYMPHOCYTES 13.1 % (15-50); MCH 27.6 pg (26.0-34.0); MCHC 33.5 g/dL (31.0-37.0); MCV 82.4 fL (80.0-100.0); MEAN PLATELET VOLUME 11.2 fL (7.4-10.4); MONOCYTES 12.4 % (2-11); PLATELET COUNT 135 10x3/uL (130-400); RBC 3.12 10x6/uL (4.20-6.10)
[2018-11-19 05:04] LABS: WBC 6.9 10x3/uL (4.8-10.8)
[2018-11-19 05:31] LABS: ANION GAP 10.2 mmol/L (8-16); CALCIUM 9.3 mg/dL (8.5-10.1); CARBON DIOXIDE 27.3 mmol/L (21.0-32.0); CREATININE - SERUM 1.6 mg/dL (0.6-1.3); POTASSIUM - SERUM 4.5 mmol/L (3.5-5.1)
[2018-11-19 08:38] VITALS: BP 178/95
[2018-11-19 13:00] VITALS: BP 143/79
--- NOTE | 2018-11-19 13:28 | NUR ---
NUTRITION F/U PT REMAINS NPO AT THIS TIME. MAY BENEFIT FROM NUTRITION SUPPORT IF UNABLE TO TOLERATE PO IN 24 [address] FOLLOWING
--- NOTE | 2018-11-19 14:57 | NUR ---
WENT TO CHANGE OUT PT MEDICATIONS DUE TO ORDER, PT STATED HE WANTS TO HAVE HIS OXY FROM PHARMACY TO MANAGE PAIN, ADVISED PT I AM UNABLE TO DO THAT BUT DR MCDANIEL HAS ORDERED MEDICATION TO MANAGE PAIN, PT STATED HE NEEDS IT MORE THAN IT IS ORDERED. PT STATED HE WANTS TO GO HOME THEN, ADVISED PT THAT WE NEED TO MAKE SURE HE IS WELL AND SAFE BEFORE DC PT THEN STATED HE WANTED TO SPEAK WITH DR. DR MCDANIEL ON FLOOR AND HEADED TO PT ROOM. CONTINUE WITH PLAN OF CARE
[2018-11-19 16:49] VITALS: BP 102/57
--- NOTE | 2018-11-19 19:00 | NUR ---
REPORT RECEIVED AND CARE OF PT ASSUMED. PT SITTING ON BEDSIDE WATCHING TV. LEFT MIDLINE PATENT WITH D5LR W/ 40 KCL INFUSING AT 50 ML/HR; AND PROTONIX INFUSING AT 50 ML / HR. WILL MONITOR FOR NEEDS.
--- NOTE | 2018-11-19 19:37 | NUR ---
I have reviewed this patient and I concur with the Shift Assessment completed by the Licensed Practical Nurse today this shift.
[2018-11-19 20:00] VITALS: BP 161/84
--- NOTE | 2018-11-19 20:40 | NUR ---
HS MEDICATIONS GIVEN TO INCLUDE ZANAFLEX AND BENADRYL PER PRN ORDER FOR SLEEP AND PAIN. WILL CONTINUE TO MONITOR FOR NEEDS.
[2018-11-20 04:00] VITALS: BP 151/75
[2018-11-20 06:21] LABS: ANION GAP 12.3 mmol/L (8-16); CARBON DIOXIDE 28.1 mmol/L (21.0-32.0); CREATININE - SERUM 1.6 mg/dL (0.6-1.3); POTASSIUM - SERUM 4.4 mmol/L (3.5-5.1); VANCOMYCIN - RANDOM 31.8 ug/mL (10.0-20.0)
[2018-11-20 06:22] LABS: BASOPHILS 0.5 % (0-2); EOSINOPHILS 7.7 % (0-7); HEMOGLOBIN 8.9 g/dL (13.5-17.5); IMMATURE GRANULOCYTES 0.2 % (0-5); LYMPHOCYTES 18.7 % (15-50); MCH 26.9 pg (26.0-34.0); MCV 81.6 fL (80.0-100.0); MEAN PLATELET VOLUME 10.8 fL (7.4-10.4); MONOCYTES 15.7 % (2-11); NEUTROPHILS 57.2 % (40-80); PLATELET COUNT 162 10x3/uL (130-400); RBC 3.31 10x6/uL (4.20-6.10); RDW 14.8 % (11.5-14.5); WBC 5.9 10x3/uL (4.8-10.8)
[2018-11-20 09:09] VITALS: BP 147/57
--- NOTE | 2018-11-20 10:18 | NUR ---
PT LYING IN BED ASLEEP, DID NOT HAVE BREAKFAST, WOKE PT FOR MORNING MEDS, NO NEEDS VOICED, CONTINUE WITH PLAN OF CARE
[2018-11-20 13:16] VITALS: BP 137/63
[2018-11-20 16:43] VITALS: BP 158/70
--- NOTE | 2018-11-20 19:00 | NUR ---
PT ALERT AND ORIENTED. STATES HE IS VERY TIRED AND NOT FEELING SO WELL. ASKS WHEN PAIN MEDICINE IS AVAILABLE. MIDLINE IV IN PLACE AND IS PATENT. COMPLAINS OF BACK PAIN AND "A LITTLE PAIN" IN STOMACH. CALL LIGHT IN REACH OF PATIENT. CONTINUE PLAN OF CARE.
[2018-11-20 19:56] VITALS: BP 159/78
[2018-11-21] VITALS: BP 132/77
[2018-11-21 04:54] VITALS: BP 142/75
[2018-11-21 06:33] LABS: BASOPHILS 0.5 % (0-2); EOSINOPHILS 4.9 % (0-7); HEMATOCRIT 27.2 % (42.0-54.0); HEMOGLOBIN 9.2 g/dL (13.5-17.5); IMMATURE GRANULOCYTES 0.3 % (0-5); LYMPHOCYTES 21.3 % (15-50); MCH 27.5 pg (26.0-34.0); MCHC 33.8 g/dL (31.0-37.0); MCV 81.2 fL (80.0-100.0); MEAN PLATELET VOLUME 10.9 fL (7.4-10.4); MONOCYTES 20.2 % (2-11); NEUTROPHILS 52.8 % (40-80); PLATELET COUNT 184 10x3/uL (130-400); RBC 3.35 10x6/uL (4.20-6.10); RDW 14.4 % (11.5-14.5); WBC 6.1 10x3/uL (4.8-10.8)
[2018-11-21 06:51] LABS: ANION GAP 9.9 mmol/L (8-16); CALCIUM 8.8 mg/dL (8.5-10.1); CARBON DIOXIDE 30.5 mmol/L (21.0-32.0); CREATININE - SERUM 1.5 mg/dL (0.6-1.3); POTASSIUM - SERUM 3.4 mmol/L (3.5-5.1)
[2018-11-21 07:47] VITALS: BP 142/73
--- NOTE | 2018-11-21 09:00 | NUR ---
ASSESSMENT PER FLOW SHEET. PT IS WITHOUT DISTRESS. HE DENIES NEEDS AT PRESENT.CALL LIGHT IN REACH
--- NOTE | 2018-11-21 13:00 | NUR ---
AMBULATED IN HALLS WITH FAMILY.CALL LIGHT IN REACH
[2018-11-21 13:06] VITALS: BP 167/79
[2018-11-21 17:10] VITALS: BP 109/56; BP 116/77
--- NOTE | 2018-11-21 18:41 | NUR ---
ATE CL TRAY FOR DINNER. I TOOK HIM FARHAT MILK,ICE CREAM,FARHAT PUDDING.PT TOLERATED ALL OF FOOD WITHOUT EMESIS OR SIGNS OF PAIN.CONT PLAN OF CARE
--- NOTE | 2018-11-21 19:00 | NUR ---
PT ALERT AND ORIENTED WATCHING TV. PT STATES HE HAS HAD A MUCH BETTER DAY. STATES HE IS TOLERATING NEW DIET WELL AND HAS ONLY BACK PAIN AT THIS TIME AND MINIMAL STOMACH DISCOMFORT. HAS LEFT UPPER ARM MIDLINE THAT IS PATENT AND FLUSHES WELL. ACTIVE BOWEL SOUNDS X 4 . DENIES FURTHER NEEDS AT THIS TIME. HAS CALL LIGHT IN HAND. CONTINUE PLAN OF CARE.
[2018-11-21 20:32] VITALS: BP 113/63
[2018-11-22 01:42] VITALS: BP 116/68
--- NOTE | 2018-11-22 04:34 | NUR ---
I have reviewed this patient and I concur with the Shift Assessment completed by the Licensed Practical Nurse today this shift.
[2018-11-22 05:31] LABS: BASOPHILS 0.5 % (0-2); HEMATOCRIT 27.5 % (42.0-54.0); IMMATURE GRANULOCYTES 0.7 % (0-5); LYMPHOCYTES 27.8 % (15-50); MCH 26.9 pg (26.0-34.0); MCHC 32.7 g/dL (31.0-37.0); MCV 82.3 fL (80.0-100.0); MEAN PLATELET VOLUME 10.3 fL (7.4-10.4); MONOCYTES 20.4 % (2-11); NEUTROPHILS 44.6 % (40-80); PLATELET COUNT 206 10x3/uL (130-400); RBC 3.34 10x6/uL (4.20-6.10); RDW 14.6 % (11.5-14.5); WBC 5.8 10x3/uL (4.8-10.8)
[2018-11-22 06:08] LABS: ANION GAP 9.3 mmol/L (8-16); CALCIUM 8.6 mg/dL (8.5-10.1); CARBON DIOXIDE 31.3 mmol/L (21.0-32.0); CREATININE - SERUM 1.5 mg/dL (0.6-1.3); MAGNESIUM - SERUM 1.5 mg/dL (1.8-2.4); PHOSPHOROUS 3.3 mg/dL (2.5-4.9); POTASSIUM - SERUM 3.6 mmol/L (3.5-5.1)
--- NOTE | 2018-11-22 07:45 | NUR ---
PATIENT IN BED WITH IV INTACT. NO COMPLAINTS OR SIGNS OF DISTRESS. CALL LIGHT WITHIN REACH.
[2018-11-22 09:11] VITALS: BP 127/76
[2018-11-22 13:29] VITALS: BP 129/78
--- NOTE | 2018-11-22 15:23 | MORECARE ---
CASE MANAGEMENT DISCHARGE SUMMARY PATIENT: FABRICIO MAO UNIT: [id number] ADM DATE: 11/15/18 AGE: 63 : 55 SEX: M ROOM/BED: D.2220 AUTHOR: RANDY RAVI PHYSICIAN: REFERRING PHYSICIAN: KACIE MCDANIEL MD DATE OF SERVICE: 11/22/18 Discharge Plan Patient Name: FABRICIO MAO [facility] [facility] 1955 Planned Disposition: Home with Home Health Anticipated Discharge Date: Discharge Date: Expected LOS: Initial Reviewer: [email or web address] Initial Review Date: 11/15/2018 Generated: 11/22/18 4:23 pm DCPIA - Discharge Planning Initial Assessment Updated by [email or web address]: Rossy Naidu on 11/22/18 3:22 pm * Is the patient Alert and Oriented? Yes * How many steps to enter\exit or inside your home? * PCP ROSEMARY * Pharmacy [facility] * Preadmission Environment Home Alone * ADLs Independent * Equipment Cane * List name and contact numbers for known caregivers / representatives who currently or will assist patient after discharge: CÉSAR GOSS [phone] * Verbal permission to speak to the caregivers and representatives has been obtained from the patient. N/A * Community resources currently utilized None * Additional services required to return to the preadmission environment? Yes * Can the patient safely return to the preadmission environment? Yes * Has this patient been hospitalized within the prior 30 days at any hospital? No Patient Name: FABRICIO MAO Page [id number] at 1523 All edits/amendments must be made on the electronic document DICTATION DATE: 11/22/18 1522 CENTRAL SERVICE TECH: TITUS 11/22/18 1522 RPT#: [id number] DC DATE: STATUS: ADM IN [facility] [address] [place] [address] END OF REPORT
--- NOTE | 2018-11-22 15:33 | MORECARE ---
CASE MANAGEMENT DISCHARGE SUMMARY PATIENT: FABRICIO MAO UNIT: [id number] ADM DATE: 11/15/18 AGE: 63 : 55 SEX: M ROOM/BED: D.2220 AUTHOR: BREONNA,DOC PHYSICIAN: REFERRING PHYSICIAN: KACIE MCDANIEL MD DATE OF SERVICE: 11/22/18 Discharge Plan Patient Name: FABRICIO MAO Facility: [facility]:[place] : 1955 Planned Disposition: Home with Home Health Anticipated Discharge Date: Discharge Date: Expected LOS: Initial Reviewer: [email or web address] Initial Review Date: 11/15/2018 Generated: 11/22/18 4:33 pm Comments DCP- Discharge Planning Updated by [email or web address]: Rossy Naidu on 11/22/18 2:[address] Patient Name: FABRICIO MAO Admission Status: ER Accout number: [id number] Admission Date: 11-15-2018 : 1955 Admission Diagnosis:ACUTE DUODENAL ULCER WITH PERFORATION Attending: KACIE MCDANIEL Current LOS: 7 Anticipated DC Date: Planned Disposition: Home with Home Health Primary Insurance: [facility] [employer] Discharge Planning Comments: CM met with patient to complete initial dc planning assessment. CM educated patient on the CM role and verbal consent given by patient to complete assessment. Patient lives at home by himself where he is independent with his care. At discharge patient plans to return home and feels this is a safe discharge. CM discussed availability of home health, rehab services, and medical equipment. He stated that he uses a cane at home and his daughter will be the one to drive him home. He would like home health when he is discharged [facility] with [facility]) [facility]) [facility]. IMM served and explained copy placed in chart. Patient denied known discharge needs at this time. CM will continue to follow and will assist as needed with dc plans/needs. Straight Line Press Setter: Rossy Naidu DCPIA - Discharge Planning Initial Assessment Updated by [email or web address]: Rossy Naidu on 11/22/18 3:22 pm * Is the patient Alert and Oriented? Yes * How many steps to enter\exit or inside your home? * PCP BHRAFAY * Pharmacy [facility] [address] * Preadmission Environment Home Alone * ADLs Independent * Equipment Cane * List name and contact numbers for known caregivers / representatives who currently or will assist patient after discharge: CÉSAR GOSS [phone] * Verbal permission to speak to the caregivers and representatives has been obtained from the patient. N/A * Community resources currently utilized None * Additional services required to return to the preadmission environment? Yes * Can the patient safely return to the preadmission environment? Yes * Has this patient been hospitalized within the prior 30 days at any hospital? No Coverage Notice Reviewer: [email or web address] Sonja Naidu Notice Issued Date-Time: 11/22/2018 15:00 Notice Type: IM Discharge Notice Notice Delivered To: Patient Relationship to Patient: Extension Work Director Name: Delivery Method: HAND - Hand Delivered Michelle Days: Prior Verbal Notification: Recipient Understood Notice: Yes Recipient Signature: Yes Med Rec Note Co-signed by Attending: Coverage Notice Comment: Reviewer: [email or web address] Sonja Naidu Notice Issued Date-Time: 11/22/2018 15:00 Notice Type: Patient Choice Letter Notice Delivered To: Patient Relationship to Patient: Extension Work Director Name: Delivery Method: HAND - Hand Delivered Michelle Days: Prior Verbal Notification: Recipient Understood Notice: Yes Recipient Signature: Yes Med Rec Note Co-signed by Attending: Coverage Notice Comment: home health [facility] Last DP export: 11/22/18 2:23 pm Patient Name: FABRICIO MAO Page [phone] at 1533 All edits/amendments must be made on the electronic document DICTATION DATE: 11/22/181532 MECHANICAL SPECIALIST: TITUS 11/22/18 153 RPT#: [id number] DC DATE: STATUS: ADM IN [facility] [address] [place] [address] END OF REPORT
[2018-11-22 17:30] VITALS: BP 126/80
--- NOTE | 2018-11-22 18:45 | NUR ---
PATIENT IN BED WITH IV INTACT. NO COMPLAINTS OR SIGNS OF DISTRESS. CALL LIGHT WITHIN REACH.
--- NOTE | 2018-11-22 20:00 | NUR ---
ASSESSMENT PER FLOWSHEET. IV PATENT LEFT UPPER ARM MIDLINE WITH PROTONIC GTT AT 10CC'S/HR AND NS AT KVO RATE. SR UP X2 CALL LIGHT WITHIN REACH PT GETS UP AD QUINN TO BR.
--- NOTE | 2018-11-22 21:00 | NUR ---
MEDS GIVEN PER MAR INCLUDING SCHEDULED PAIN MED.
[2018-11-22 21:13] VITALS: BP 105/70
--- NOTE | 2018-11-23 | NUR ---
EYES CLOSED RESPIRATIONS WITH EASE AND UNLABORED.
[2018-11-23 01:37] VITALS: BP 119/75
--- NOTE | 2018-11-23 03:00 | NUR ---
EYES CLSOED RESPIRATIONS WITH EASE AND UNLABORED.
[2018-11-23 03:52] VITALS: BP 123/73
--- NOTE | 2018-11-23 07:43 | NUR ---
PT IS RESTING IN BED WITH EYES OPEN. RESPIRATIONS ARE EVEN AND UNLABORED. PT DENIES PRESENCE OF N/V/DYSPNEA AT THIS TIME. PT REPORTS PAIN THAT IS CHRONIC IN NATURE TO BACK. WILL ADDRESS. SEE EMAR. PT DENIES FURTHER NEEDS. BED IS IN THE LOWEST POSITION. CALL LIGHT AND BEDSIDE TABLE ARE WITHIN REACH. SIDE RAILS X 2. WILL CONT TO MONITOR.
[2018-11-23 07:51] LABS: BASOPHILS 0.7 % (0-2); EOSINOPHILS 7.2 % (0-7); HEMATOCRIT 29.1 % (42.0-54.0); HEMOGLOBIN 9.4 g/dL (13.5-17.5); IMMATURE GRANULOCYTES 0.5 % (0-5); LYMPHOCYTES 26.9 % (15-50); MCH 27.2 pg (26.0-34.0); MCHC 32.3 g/dL (31.0-37.0); MCV 84.1 fL (80.0-100.0); MEAN PLATELET VOLUME 10.8 fL (7.4-10.4); MONOCYTES 15.7 % (2-11); PLATELET COUNT 231 10x3/uL (130-400); RBC 3.46 10x6/uL (4.20-6.10); RDW 14.7 % (11.5-14.5); WBC 5.7 10x3/uL (4.8-10.8)
[2018-11-23 08:05] LABS: ANION GAP 11.7 mmol/L (8-16); CALCIUM 8.7 mg/dL (8.5-10.1); CARBON DIOXIDE 28.8 mmol/L (21.0-32.0); CREATININE - SERUM 1.5 mg/dL (0.6-1.3); PHOSPHOROUS 3.2 mg/dL (2.5-4.9); POTASSIUM - SERUM 3.5 mmol/L (3.5-5.1)
[2018-11-23 09:30] VITALS: BP 140/68
[2018-11-23 14:01] VITALS: BP 105/65
[2018-11-23 17:42] VITALS: BP 121/75
[2018-11-23 20:00] VITALS: BP 125/71
[2018-11-24 04:00] VITALS: BP 134/66
--- NOTE | 2018-11-24 07:27 | NUR ---
PT IS RESTING IN BED WITH EYES CLOSED. RESPIRATIONS ARE EVEN AND UNLABORED. PT REPORTS PAIN TO BACK, HIP AND LEGS. PT DENIES NEEDS AT THIS TIME. PT DENIES BM SINCE 11/23/18. PT REPORTS THAT HE IS PASSING GAS. BS HYPER ACTIVE X 4 QUADRANTS. PT DENIES PRESENCE OF N/V. PT DENIES FURTHER NEEDS. BED IS IN THE LOWEST POSITION. CALL LIGHT AND BEDSIDE TABLE ARE WITHIN REACH. SIDE RAILS X 2. WILL CONT TO MONITOR.
[2018-11-24 08:49] VITALS: BP 125/72
[2018-11-24 09:57] LABS: BASOPHILS 0.3 % (0-2); HEMATOCRIT 29.7 % (42.0-54.0); HEMOGLOBIN 9.6 g/dL (13.5-17.5); IMMATURE GRANULOCYTES 0.3 % (0-5); MCH 27.2 pg (26.0-34.0); MCHC 32.3 g/dL (31.0-37.0); MCV 84.1 fL (80.0-100.0); MEAN PLATELET VOLUME 9.8 fL (7.4-10.4); MONOCYTES 5.6 % (2-11); NEUTROPHILS 75.8 % (40-80); PLATELET COUNT 220 10x3/uL (130-400); RBC 3.53 10x6/uL (4.20-6.10); RDW 14.5 % (11.5-14.5)
[2018-11-24 09:58] LABS: ANION GAP 10.7 mmol/L (8-16); CALCIUM 8.3 mg/dL (8.5-10.1); CARBON DIOXIDE 29.7 mmol/L (21.0-32.0); CREATININE - SERUM 1.5 mg/dL (0.6-1.3); POTASSIUM - SERUM 3.4 mmol/L (3.5-5.1)
[2018-11-24 10:05] LABS: WBC 7.4 10x3/uL (4.8-10.8)
[2018-11-24 13:23] VITALS: BP 128/79
--- NOTE | 2018-11-24 15:08 | NUR ---
NUTRITION F/U CHART REVIEWED. PT VISIT. DIET ADVANCED TO REG WITH ~35% INTAKE TODAYS LUNCH. WILL HONOR FOOD PREFERENCES, MONITOR PO INTAKE. RD FOLLOWING
[2018-11-24] MEDS ORDERED: NEXIUM40 MG PO (17:37)
[2018-11-24] MEDS ORDERED: LEVAQUIN750 MG PO (17:38)
[2018-11-24] MEDS ORDERED: CARAFATE1 G PO (17:38)
[2018-11-24 17:43] VITALS: BP 135/81
--- NOTE | 2018-11-24 18:43 | NUR ---
DISCHARGE INSTRUCTION GIVEN TO PT AND PT FAMILY MEMBER. PRINTED RX GIVEN TO PT FAMILY MEMBER AT PT REQUEST. PT DENIES FURTHER QUESTIONS/CONCERNS. MIDLINE IV REMOVED WITH CATHETER TIP INTACT. DRESSING APPLIED. PT EDUCATED ABOUT DRESSING CARE. PT VERBALIZE UNDERSTANDING. PT DENIES FURTHER NEEDS. PT TO NOTIFY NURSE WHEN READY FOR TRANSPORT FROM ROOM.
--- NOTE | 2018-11-24 19:20 | NUR ---
PT TRANSPORTED FROM ROOM VIA WHEELCHAIR. PT DENIES FURTHER NEEDS/QUESTIONS/CONCERNS. PT STATES THAT HE HAS ALL PERSONAL BELONGINGS.
--- NOTE | 2018-11-25 15:21 | MORECARE ---
CASE MANAGEMENT DISCHARGE SUMMARY PATIENT: FABRICIO MAO UNIT: [id number] ADM DATE: 11/15/18 AGE: 63 : 55 SEX: M ROOM/BED: D.2220 AUTHOR: BREONNADOC PHYSICIAN: REFERRING PHYSICIAN: KACIE MCDANIEL MD DATE OF SERVICE: 11/25/18 Discharge Plan Patient Name: FABRICIO MAO Facility: [facility]:[place] : 1955 Planned Disposition: Home with Home Health Anticipated Discharge Date: Discharge Date: 11/24/2018 Expected LOS: 0 Initial Reviewer: [email or web address] Initial Review Date: 11/15/2018 Generated: 11/25/18 4:21 pm Comments DCP- Discharge Planning Updated by [email or web address]: Rossy Naidu on 11/22/18 2:[address] Patient Name: FABRICIO MAO Admission Status: ER Accout number: [id number] Admission Date: 11-15-2018 : 1955 Admission Diagnosis:ACUTE DUODENAL ULCER WITH PERFORATION Attending: KACIE MCDANIEL Current LOS: 7 Anticipated DC Date: Planned Disposition: Home with Home Health Primary Insurance: [facility] [employer] Discharge Planning Comments: CM met with patient to complete initial dc planning assessment. CM educated patient on the CM role and verbal consent given by patient to complete assessment. Patient lives at home by himself where he is independent with his care. At discharge patient plans to return home and feels this is a safe discharge. CM discussed availability of home health, rehab services, and medical equipment. He stated that he uses a cane at home and his daughter will be the one to drive him home. He would like home health when he is discharged [facility]) [facility]) [facility]. IMM served and explained copy placed in chart. Patient denied known discharge needs at this time. CM will continue to follow and will assist as needed with dc plans/needs. Pharmacology Associate: Rossy Naidu DCPIA - Discharge Planning Initial Assessment Updated by [email or web address]: Rossy Naidu on 11/22/18 3:22 pm * Is the patient Alert and Oriented? Yes * How many steps to enter\exit or inside your home? * PCP BHARANY * Pharmacy [facility] * Preadmission Environment Home Alone * ADLs Independent * Equipment Cane * List name and contact numbers for known caregivers / representatives who currently or will assist patient after discharge: CÉSAR GOSS [phone] * Verbal permission to speak to the caregivers and representatives has been obtained from the patient. N/A * Community resources currently utilized None * Additional services required to return to the preadmission environment? Yes * Can the patient safely return to the preadmission environment? Yes * Has this patient been hospitalized within the prior 30 days at any hospital? No Coverage Notice Reviewer: [email or web address] Naidu Notice Issued Date-Time: 11/22/2018 15:00 Notice Type: IM Discharge Notice Notice Delivered To: Patient Relationship to Patient: Grocery Stock Clerk Name: Delivery Method: HAND - Hand Delivered Michelle Days: Prior Verbal Notification: Recipient Understood Notice: Yes Recipient Signature: Yes Med Rec Note Co-signed by Attending: Coverage Notice Comment: Reviewer: [email or web address] Naidu Notice Issued Date-Time: 11/22/2018 15:00 Notice Type: Patient Choice Letter Notice Delivered To: Patient Relationship to Patient: Grocery Stock Clerk Name: Delivery Method: HAND - Hand Delivered Michelle Days: Prior Verbal Notification: Recipient Understood Notice: Yes Recipient Signature: Yes Med Rec Note Co-signed by Attending: Coverage Notice Comment: home health [facility] Last DP export: 11/22/18 2:33 pm Patient Name: FABRICIO MAO Page [id number] at 1521 All edits/amendments must be made on the electronic document DICTATION DATE: 11/25/18 152 SWITCHBOARD MANAGER: TITUS 11/25/18 152 RPT#: [id number] DC DATE:11/24/18 STATUS: DIS IN [facility] [address] [place] [address] END OF REPORT
--- NOTE | 2018-11-25 17:31 | DS ---
PATIENT:FABRICIO MAO :55 MEDICAL RECORD: [id number] DISCHARGE SUMMARY ADMISSION DATE: 11/15/18 DISCHARGE DATE: 11/24/18 PRINCIPAL DIAGNOSES: Pneumoperitoneum of uncertain etiology, favor perforated duodenal ulcer. OTHER DIAGNOSES: History of peptic ulcer disease, history of constipation, chronic back pain, type 2 diabetes mellitus, history of aneurysm clipping of a brain aneurysm, anxiety, depression, prostate problems, anemia, delutional and not related to blood loss, acute renal failure, hypertension, and hypokalemia. HOSPITAL COURSE: The patient was admitted through the Emergency Room. He was started on antibiotics as well as a proton pump inhibitor. His condition improved. He is being dismissed home on Nexium, Levaquin, as well as Carafate. He can follow up with Dr. Eagle in the office in 2-3 weeks. TRANSINT:[id number] Voice Confirmation ID: [id number] DOCUMENT ID: [id number] MARK MCKINNEY MD at 1731 CC: [id number] DICTATION DATE: 11/24/18 170 DEV OPS ENGINEER: 11/25/18 0059 DIS IN 11/24/18 [facility] [address] [place] [id number]
== END 2018-11-24 19:38 | disposition home health service (06) | DRG 381 ==
LOC: D.ER 13:04 → D.MS 18:13 → D.ICU 18:13 → D.MS 11-16 11:00
PROVIDERS: Family Medicine; Internal Medicine Nephrology; ADMIT Surgery; ATTEND Surgery
PROC: 05HY33Z Insertion of Infusion Device into Upper Vein, Percutaneous Approach (ICD-10-PCS; principal; 2018-11-17)
DX: K26.1 Acute duodenal ulcer with perforation (principal); N13.8 Other obstructive and reflux uropathy; N17.9 Acute kidney failure, unspecified; E11.8 Type 2 diabetes mellitus with unspecified complications; R33.9 Retention of urine, unspecified; K27.7 Chronic peptic ulcer, site unspecified, without hemorrhage or perforation; N40.1 Benign prostatic hyperplasia with lower urinary tract symptoms; R33.8 Other retention of urine; E87.6 Hypokalemia

== ENCOUNTER → 2018-12-20 09:55 | Outpatient (CLI) | payer MEDICARE, MEDICAID ==
[2018-11-17 11:38] VITALS: BMI 26.2
[~2018-12-20 09:55] MED LIST changes: +CARAFATE1 G PO; +KLONOPIN0.5 MG PO; +LEVAQUIN750 MG PO; +NEXIUM40 MG PO
== END | disposition home or self-care (01) ==
LOC: D.MRI 09:55
PROVIDERS: ATTEND Legal Medicine
DX: M54.5 Low back pain (principal)

== ENCOUNTER → 2018-12-21 11:13 | Outpatient (CLI) | payer MEDICARE, MEDICAID ==
[2018-11-17 11:38] VITALS: BMI 26.2
== END | disposition home or self-care (01) ==
LOC: D.CT 11:13
PROVIDERS: ATTEND Surgery
DX: K26.5 Chronic or unspecified duodenal ulcer with perforation (principal); K65.1 Peritoneal abscess

== ENCOUNTER → 2019-10-24 22:20 | Outpatient (CLI) | payer MEDICARE, MEDICAID ==
[2018-11-17 11:38] VITALS: BMI 26.2
[2019-10-25 01:44] LABS: % SATURATION 13 % (15-55); IRON 60 ug/dl (35-150); TOTAL IRON BIND CAPACITY 445 ug/dl (260-445); UNSAT IRON BIND CAPACITY 385 ug/dl (150-375)
== END | disposition home or self-care (01) ==
LOC: D.LABREF 22:20
PROVIDERS: ATTEND Legal Medicine
DX: D50.0 Iron deficiency anemia secondary to blood loss (chronic) (principal); D64.89 Other specified anemias